=== PATIENT | female | born 1950 | race Hispanic/Latino ===

== ENCOUNTER 2021-07-10 11:04 | Emergency (ER) | payer MEDICARE ==
[~2021-07-10] VITALS: Ht 160 cm; Wt 58.5 kg
[2021-07-10] MEDS ORDERED: KETOROLAC TROMETHAMINE 30 MG/ML VIAL IV STA (11:22)
[2021-07-10] MEDS ORDERED: IOPAMIDOL 370 MG/ML 200 ML INFUS..BTL INJ ONE (12:31)
[2021-07-10] MEDS ORDERED: SODIUM CHLORIDE 0.9% 50ML 50 ML ONE (12:31)
[2021-07-10] MEDS ORDERED: IBUPROFEN400 MG PO (13:32)
[2021-07-10] MEDS ORDERED: CYCLOBENZAPRINE10 MG PO (13:32)
[2021-07-10 13:41] VITALS: BP 172/75
== END 2021-07-10 12:18 | disposition home or self-care (01) ==
LOC: FSED 11:07
DX: M54.6 Pain in thoracic spine (principal); I10 Essential (primary) hypertension; E78.5 Hyperlipidemia, unspecified
CPT/HCPCS: 71045; 71260; 80053; 82553; 84484; 85025; 85379; 93005; 99284; J1885; Q9967

== ENCOUNTER → 2021-10-26 | Outpatient (CLI) | payer MEDICARE ==
[~2021-10-26] MED LIST: CYCLOBENZAPRINE10 MG PO; IBUPROFEN400 MG PO
== END ==
LOC: CT 10:57
PROVIDERS: ATTEND Internal Medicine
DX: R91.1 Solitary pulmonary nodule (principal)
CPT/HCPCS: 71250

== ENCOUNTER → 2023-03-27 | Outpatient (CLI) | payer MEDICARE | LOC: CT 08:30 | PROVIDERS: ATTEND Internal Medicine | DX: R91.1 Solitary pulmonary nodule (principal) | CPT/HCPCS: 71250 ==

== ENCOUNTER 2023-09-16 12:15 | Emergency (ER) | payer MEDICARE ==
[~2023-09-16] VITALS: Ht 160 cm; Wt 58.1 kg
[2023-09-16] MEDS ORDERED: MAGNESIUM/ALUMINUM/SIMETHICONE 30 ML UDC ONE (14:18)
[2023-09-16] MEDS ORDERED: MAGNESIUM/ALUMINUM/SIMETHICONE 30 ML UDC PO ONE (14:30)
[2023-09-16] MEDS ORDERED: CARAFATE1 GM/10 ML PO (15:52)
[2023-09-16 16:15] VITALS: O2SAT 98
== END 2023-09-16 16:15 | disposition home or self-care (01) ==
LOC: FSED 12:32
DX: R07.89 Other chest pain (principal); K20.80 Other esophagitis without bleeding; M81.0 Age-related osteoporosis without current pathological fracture; I10 Essential (primary) hypertension; E78.5 Hyperlipidemia, unspecified
CPT/HCPCS: 71046; 80053; 81003; 85025; 93005; 99284

== ENCOUNTER 2024-09-06 12:09 | Emergency (ER) | payer MEDICARE ==
[~2024-09-06] VITALS: Ht 160 cm; Wt 61.0 kg
[~2024-09-06 12:09] MED LIST changes: +CARAFATE1 GM/10 ML PO
[2024-09-06 12:48] VITALS: TEMP 98.3
[2024-09-06] MEDS: ONDANSETRON HCL INJ 2MG/ML 2ML 2 MG/ML VIAL IV ONE (12:58)
[2024-09-06] MEDS: FAMOTIDINE 20 MG/2 ML VIAL IV ONE (12:59)
[2024-09-06 13:38] VITALS: PULSE 62; RESP 16; O2SAT 96
== END 2024-09-06 13:46 | disposition home or self-care (01) ==
LOC: FSED 12:13
DX: R00.2 Palpitations (principal); R07.89 Other chest pain; I10 Essential (primary) hypertension; E78.5 Hyperlipidemia, unspecified; M81.0 Age-related osteoporosis without current pathological fracture; R94.31 Abnormal electrocardiogram [ECG] [EKG]
CPT/HCPCS: 71046; 80053; 81003; 82553; 84484; 85025; 93005; 99284; J2405

== ENCOUNTER → 2025-04-11 | Outpatient (REF) | payer MEDICARE | LOC: CT 07:43 | PROVIDERS: ATTEND Internal Medicine | DX: R91.1 Solitary pulmonary nodule (principal) | CPT/HCPCS: 71250 ==